=== PATIENT | male | born 1980 | race African-American/Black ===

== ENCOUNTER 2023-04-27 13:39 | Emergency (ER) | payer OTHER ==
[2023-04-27 14:06] LABS: Absolute Lymphocytes (CBC) 2.2 K/uL (0.7-4.9); Lymphocytes % 29.1 % (15.3-44.8); MCV 87.2 fL (80-100); MPV 11.4 fL (7.6-11.3); Platelets 213 thou/uL (152-406); RBC Red Blood Cell Count 4.36 M/uL (4.33-5.43)
[2023-04-27 14:15] LABS: Protime INR 0.95
--- NOTE | 2023-04-27 14:19 | EDPHYS ---
Physician Documentation [facility] Name: Yosi Max Age: 42 yrs Sex: Male : 1980 Arrival Date: 04/27/2023 Time: 13:39 Bed IW10 Private MD: ED Physician Aaron Escalante HPI: 04/27 14:14 This 42 yrs old Male presents to ER via Ambulatory with complaints of Suicidal ideation.rn 14:14 The patient presents to the emergency department with anxiety, depression, paranoia, rn suicide ideation. Onset: The symptoms/episode began/occurred at an unknown time. Severity of symptoms: At their worst the symptoms were moderate in the emergency department the symptoms are unchanged. The patient has experienced similar episodes in the past. Patient reports suicidal ideation, no attempt or overdose but does have a previous attempt. Patient noncompliant with psychiatric medication. Reports paranoia and depression along with anxiety. Brought in by police and mental health deputy. Patient without any medical complaints. Denies any recent illness or current illness.. Historical: - Allergies: 13:45 No Known Allergies; mb9 - Home Meds: 13:45 insulin [Active]; mb9 - PMHx: 13:45 Diabetes mellitus; PTSD; Anxiety; Depressive disorder; mb9 - PSHx: 13:45 Right knee; mb9 - Immunization history:: Adult Immunizations up to date. - Social history:: Smoking status: Reported history of juuling and/or vaping. Patient uses crack. - Family history:: not pertinent. - Hospitalizations: : No recent hospitalization is reported. ROS: 14:14 Constitutional: Negative for fever, chills, and weight loss, Eyes: Negative for injury, rn pain, redness, and discharge, Cardiovascular: Negative for chest pain, palpitations, and edema, Respiratory: Negative for shortness of breath, cough, wheezing, and pleuritic chest pain, Abdomen/GI: Negative for abdominal pain, nausea, vomiting, diarrhea, and constipation, Back: Negative for injury and pain, MS/Extremity: Negative for injury and deformity, Skin: Negative for injury, rash, and discoloration, Neuro: Negative for headache, weakness, numbness, tingling, and seizure, Psych: + suicidal ideations Exam: 14:14 Constitutional: This is a well developed, well nourished patient who is awake, alert, rn and in no acute distress. Neuro: Awake and alert, GCS 15, oriented to person, place, time, and situation. Cranial nerves II-XII grossly intact. Motor strength 5/5 in all extremities. Sensory grossly intact. Cerebellar exam normal. Normal gait. Vital Signs: 13:42 Weight 102.06 kg; Height 5 ft. 11 in. ; Pain 0/10; mb9 13:42 Body Mass Index 31.38 (102.06 kg, 180.34 cm) mb9 13:42 Pain Scale: Adult mb9 MDM: 13:42 Patient medically screened. rn 14:14 Differential diagnosis: depression, suicidal ideation. Data reviewed: vital signs, rn nurses notes, and as a result, I will discharge patient. Counseling: I had a detailed discussion with the patient and/or guardian regarding the historical points, exam findings, and any diagnostic results supporting the discharge/admit diagnosis, the need to transfer to another facility. ED course: Mental health deputy is here onsite and reports if medically cleared [facility] Patient without medical complaints. Will medically clear as he denies any attempt or overdose or recent illness.. 14:18 ED course: Patient discharged in care of mental health deputy [facility]. rn 14:26 ED course: Mental health deputy states okay to discharge is [facility]. 04/27 13:42 Order name: Acetaminophen; Complete Time: 14:27 rn 04/27 13:42 Order name: Basic Metabolic Panel; Complete Time: 14: rn 04/27 13:42 Order name: CBC with Diff; Complete Time: 14:19 rn 04/27 13:42 Order name: ETOH Level; Complete Time: 14:27 rn 04/27 13:42 Order name: Hepatic Function; Complete Time: 14:27 rn 04/27 13:42 Order name: PT-INR; Complete Time: 14: rn 04/27 13:42 Order name: Ptt, Activated; Complete Time: 14: rn 04/27 13:42 Order name: Salicylate; Complete Time: 14:27 rn 04/27 13:42 Order name: EKG; Complete Time: 13:43 rn 04/27 13:42 Order name: EKG - Nurse/Tech rn 04/27 13:42 Order name: IV Saline Lock rn 04/27 13:42 Order name: Labs collected and sent; Complete Time: 13:59 rn 04/27 13:42 Order name: Suicide Precautions; Complete Time: 13:48 rn 04/27 13:42 Order name: Suicide Screening ([place]) rn Administered Medications: No medications were administered Disposition Summary: 04/27/23 14:32 Transfer Ordered Transfer Location: [facility](04/27/23 14:32) rn Reason: Higher level of care(04/27/23 14:32) rn Condition: Stable(04/27/23 14:32) rn Problem: an ongoing problem(04/27/23 14:32) rn Symptoms: are unchanged(04/27/23 14:32) rn Accepting Physician: / Libby Donahue(04/27/23 15:34) danielle Diagnosis - Suicidal ideations(04/27/23 14:32) rn Forms: - Medication Reconciliation Form rn - SBAR form rn Signatures: Dispatcher [employer] EDAaron Marie MD MD rn Baxter, Heather RN RN Crystal Macdonald Mary Beth, RN RN mb9 Corrections: (The following items were deleted from the chart) 14:18 14:17 rn rn 14:18 14:17 's Administration System rn rn 14:18 14:17 Higher level of care rn rn 14:18 14:17 Stable rn rn 14:18 14:17 an ongoing problem rn rn 14:18 14:17 are unchanged rn rn 14:18 14:17 Suicidal ideations rn rn 14:31 14:18 Home rn rn 14:31 14:18 an ongoing problem rn rn 14:31 14:18 are unchanged rn rn 14:31 14:18 Stable rn rn 14:31 14:18 Suicidal ideations rn rn 15:13 14:32 Dr. valentine eb 15:34 15:13 / Libby Donahue eb hb
--- NOTE | 2023-04-27 14:19 | ER ---
Nurse's Notes [facility] Name: Yosi Max Age: 42 yrs Sex: Male : 1980 Arrival Date: 04/27/2023 Time: 13:39 Bed IW10 Private MD: Diagnosis: Suicidal ideations Presentation: 04/27 13:42 Chief complaint: Patient states: "For the past week, my PTSD, anxiety, and depression mb9 has gotten worse. I called the crisis hotlines because i planned on killing myself by overdosing on pills. I was recently in the [facility] mental health program due to trying to kill myself. I feel hopeless". Coronavirus screen: Vaccine status: Patient reports receiving the 2nd dose of the covid vaccine. Ebola Screen: No symptoms or risks identified at this time. Initial Sepsis Screen: Does the patient meet any 2 criteria? No. Patient's initial sepsis screen is negative. Does the patient have a suspected source of infection? No. Patient's initial sepsis screen is negative. Risk Assessment: Do you want to hurt yourself or someone else? Patient reports no desire to harm self or others. Onset of symptoms was 2022. 13:42 Method Of Arrival: Ambulatory mb9 13:42 Acuity: AUTUMN 2 mb9 Triage Assessment: 13:46 General: Appears in no apparent distress. Behavior is anxious. Pain: Denies pain. mb9 Neuro: Baron Agitation-Sedation Scale (RASS): 0 - Alert and Calm Level of Consciousness is awake, alert, obeys commands, Oriented to person, place, time, situation, Appropriate for age. Cardiovascular: Patient's skin is warm and dry. Respiratory: Airway is patent Respiratory effort is even, unlabored, Respiratory pattern is regular, symmetrical. GI: No signs and/or symptoms were reported involving the gastrointestinal system. : No signs and/or symptoms were reported regarding the genitourinary system. Derm: Skin is pink, warm \\T\\ dry. Musculoskeletal: Range of motion: intact in all extremities. Historical: - Allergies: 13:45 No Known Allergies; mb9 - Home Meds: 13:45 insulin [Active]; mb9 - PMHx: 13:45 Diabetes mellitus; PTSD; Anxiety; Depressive disorder; mb9 - PSHx: 13:45 Right knee; mb9 - Immunization history:: Adult Immunizations up to date. - Social history:: Smoking status: Reported history of juuling and/or vaping. Patient uses crack. - Family history:: not pertinent. - Hospitalizations: : No recent hospitalization is reported. Assessment: 13:47 Reassessment: [place] [employer] at bedside. SI precautions in place. mb9 14:00 Reassessment: Mental health deputy at bedside. mb9 14:25 Reassessment: PD and Mental health at patient bedside. Unable to speak with patient at db this time. 14:49 Reassessment: Patient appears in no apparent distress at this time. Patient and/or db family updated on plan of care and expected duration. Pain level reassessed. PD walked out with the Police to the [place]. Vital Signs: 13:42 Weight 102.06 kg; Height 5 ft. 11 in. ; Pain 0/10; mb9 13:42 Body Mass Index 31.38 (102.06 kg, 180.34 cm) mb9 13:42 Pain Scale: Adult mb9 ED Course: 13:42 Patient arrived in ED. mb9 13:42 Aaron Escalante MD is Attending Physician. rn 13:45 Triage completed. mb9 13:45 Arm band placed on. mb9 14:07 Evita Mahajan, RN is Primary Nurse. db 14:30 faxed patient clincals to [facility] as requested by the [facility]. eb 14:38 per [facility]/ Sylvester from [facility] is requesting an MOT to be filled eb out and faxed to them once complete. 14:45 Mental Health deputies and patient left the department/ awaiting for approval to eb complete the MOT to fax. 15:00 administrative approval given by Meng Barajas/ patient has been accepted to [facility] / Dr. Banks has accepted the patient in transfer without conference with Dr. Escalante. Administered Medications: No medications were administered Outcome: 14:17 ER care complete, transfer ordered by MD. rn 14:18 Discharge ordered by MD. rn 14:32 ER care complete, transfer ordered by MD. rn 15:34 Patient left the ED. hb Signatures: Aaron Escalante MD MD rn Baxter, Heather, RN RN Crystal Love Evita Mahajan, RN RN db Breneman, Cristy, RN RN mb9
[2023-04-27 14:24] LABS: ALT/SGPT 38 U/L (16-61); AST/SGOT 19 U/L (15-37); Albumin 3.8 g/dL (3.4-5.0); Alkaline Phosphatase 74 U/L (45-117); BUN Blood Urea Nitrogen 17 mg/dL (7-18); Bicarbonate 25 mEq/L (21-32); Bilirubin Direct 0.1 mg/dL (0-0.2); Bilirubin Indirect, Calculated 0.3 mg/dL (0.2-0.8); Bilirubin Total 0.4 mg/dL (0.2-1.0); Glomerular Filtration Rate 73 ml/min (=/>90); Glucose Level 285 mg/dL (74-106); Potassium 3.3 mEq/L (3.5-5.1); Protein, Total 7.6 g/dL (6.4-8.2); Sodium Level 134 mEq/L (136-145)
== END 2023-04-27 15:34 ==
LOC: ER 13:39
DX: R45.851 Suicidal ideations (principal); E11.9 Type 2 diabetes mellitus without complications; Z79.4 Long term (current) use of insulin
CPT/HCPCS: 36415; 80048; 80076; 80143; 80179; 82077; 85025; 85610; 85730; 99281